=== PATIENT | female | born 1990 ===

== ENCOUNTER 2020-10-14 01:29 | Inpatient (IN) | payer MEDICAID ==
[2020-10-14] MEDS ORDERED: Methylergonovine 0.2 MG/1 ML Amp IM PRN (01:56)
[2020-10-14] MEDS ORDERED: Butorphanol 1 MG/ML SDV IVPUSH PRN (01:56)
[2020-10-14] MEDS ORDERED: Sodium Chloride 0.9% 2.5 ML Syringe FLUSH PRN (01:56)
[2020-10-14] MEDS ORDERED: Carboprost Tromethamine 250 MCG/1 ML Amp IM PRN (01:56)
[2020-10-14] MEDS ORDERED: Nalbuphine 10 MG/1 ML Vial IVPUSH PRN (01:56)
[2020-10-14] MEDS ORDERED: Lidocaine 1% 50 ML MDV INJECT PRN (01:56)
[2020-10-14] MEDS ORDERED: Water For Irrigation,Sterile 1,000 ML Container IRR PRN (01:56)
[2020-10-14] MEDS ORDERED: Sodium Chloride 0.9% 10 ML SDV IV PRN (01:56)
[2020-10-14] MEDS ORDERED: Misoprostol 200 MCG Tab PO PRN (01:56)
[2020-10-14] MEDS ORDERED: Tranexamic Acid 1,000 MG in Sodium Chloride 0.9% 100 ML IV PRN (01:56)
[2020-10-14] MEDS ORDERED: Sodium Chloride 0.9% 10 ML Syringe FLUSH PRN (01:56)
[2020-10-14] MEDS ORDERED: Oxytocin/0.9 % Sodium Chloride 30 UNIT/500 ML BAG IV SCH (02:00)
[2020-10-14] MEDS ORDERED: Lactated Ringers 1,000 ML IV SCH (02:00)
--- NOTE | 2020-10-14 02:28 | PCM.LDHP ---
L&D History of Present Illness - General Date of Service: 10/14/20 Admit Problem/Dx: Patient Status Order with Admit Dx/Problem 10/14/20 01:56 Patient Status [ADT] Routine Admission Diagnosis/Problem Admission Diagnosis/Problem Planned 10/14/20 02:21 Cesia is a 30 yo at 39+1 weeks gestation (DUSTIN(LMP) 10/20/2020) that presents today with C/O contractions every 1-2 minutes since 8:00 pm (~6 hours). Reports adequate movement. Denies C/O LOF, vaginal bleeding. A pos, Ab neg, RI, GBS neg. SVE by RN at bedside 6-7 cm, membranes intact. Cephalic 1 day ago in office via SVE. Patient denies any complaints or concerns at this time. Desires AROM. Source of Information: Patient History Limitations: Reports: No Limitations - History of Present Illness Improves with: Reports: Movement Worsens with: Reports: Immobilization Associated Symptoms: Reports: N - Related Data Allergies/Adverse Reactions: Allergies Allergy/AdvReac Type Severity Reaction Status Date / Time No Known Allergies Allergy Verified 10/14/20 01:54 Home Medications: Home Meds Pnv No.95/Ferrous Fum/Folic AC [ Vitamins Tablet] 1 tab PO DAILY 10/14/20 [History] Past Medical History - Past Health History Medical/Surgical History: Denies Medical/Surgical History HEENT History: Reports: None Cardiovascular History: Reports: None Respiratory History: Reports: None Gastrointestinal History: Reports: None Genitourinary History: Reports: None 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 Para: 3 LMP (Approximate): Musculoskeletal History: Reports: None Neurological History: Reports: None Psychiatric History: Reports: None Endocrine/Metabolic History: Reports: None Hematologic History: Reports: None Immunologic History: Reports: None Oncologic (Cancer) History: Reports: None Dermatologic History: Reports: None - Infectious Disease History Infectious Disease History: Reports: Chicken Pox - Past Surgical History Head Surgeries/Procedures: Reports: None HEENT Surgical History: Reports: None Cardiovascular Surgical History: Reports: None Respiratory Surgical History: Reports: None GI Surgical History: Reports: None Endocrine Surgical History: Reports: None Neurological Surgical History: Reports: None Musculoskeletal Surgical History: Reports: None Oncologic Surgical History: Reports: None Dermatological Surgical History: Reports: None Social & Family History - Family History OBGYN: Reports: - Tobacco Use Tobacco Use Status *Q: Never Tobacco User - Caffeine Use Caffeine Use: Reports: Tea - Alcohol Use Alcohol Use History: No - Recreational Drug Use Recreational Drug Use: No H&P Review of Systems - Review of Systems: Review Of Systems: Comprehensive ROS is negative, except as noted in HPI. General: Reports: No Symptoms HEENT: Reports: No Symptoms Pulmonary: Reports: No Symptoms Cardiovascular: Reports: No Symptoms Gastrointestinal: Reports: No Symptoms Genitourinary: Reports: No Symptoms Musculoskeletal: Reports: No Symptoms Skin: Reports: No Symptoms Psychiatric: Reports: No Symptoms Neurological: Reports: No Symptoms Hematologic/Lymphatic: Reports: No Symptoms Immunologic: Reports: No Symptoms L&D Exam - Exam Exam: See Below - Vital Signs Vital Signs: VSS, afebrile. See flowsheet. Weight: 180 lb - OB Specific Fundal Height In cm: 38 Contraction Duration (sec): 50-60 Contraction Frequency (min): 1.5-2 Contraction Intensity: Strong Movement: Active Heart Tones: Present Heart Tones per Min: 140 Heart Rate (FHR) Variability: Moderate (6-25 bmp) Presentation: Vertex (Via handheld TAUS and SVE) - Hcikman Score Hickman Score Cervix Position: Midposition Hickman Score Consistency: Soft Hickman Score Effacement: >80% Hickman Score Dilation: > 5 cm - Exam General: Alert, Oriented, Cooperative HEENT: Conjunctiva Clear, Hearing Intact, Mucosa Moist & [place], PERRLA Neck: Supple, Trachea Midline Lungs: Clear to Auscultation, Normal Respiratory Effort Cardiovascular: Regular Rate, Regular Rhythm GI/Abdominal Exam: Normal Bowel Sounds, Soft, Non-Tender, No Organomegaly, No Distention Rectal Exam: Normal Exam, Deferred Genitourinary: Normal external exam, Enlarged uterus (Gravid uterus) Back Exam: Normal Inspection, Full Range of Motion Extremities: Normal Inspection, Normal Range of Motion, Non-Tender, No Pedal Edema, Normal Capillary Refill Skin: Warm, Dry, Intact Neurological: Cranial Nerves Intact, Reflexes Equal Bilateral Psychiatric: Alert, Normal Affect, Normal Mood - Problem List (1) Uterine contractions SNOMED Code(s): 225491288 ICD Code: [id number] - Status: Acute Priority: High Current Visit: Yes (2) 39 weeks gestation of SNOMED Code(s): 78261018 ICD Code: Z3A.39 - 39 WEEKS GESTATION OF Status: Acute Priority: High Current Visit: Yes Problem List Initiated/Reviewed/Updated: Yes Orders Last 24hrs: Active Orders 24 hr Category Date Time Status Patient Status [ADT] Routine ADT 10/14/20 01:56 Active Heart Tones [RC] CONTINUOUS Care 10/14/20 01:56 Active Non Stress Test [RC] PER UNIT ROUTINE Care 10/14/20 01:56 Active May Shower [RC] ASDIRECTED Care 10/14/20 01:56 Active Notify Provider [RC] PRN Care 10/14/20 01:56 Active Up ad Vanessa [RC] ASDIRECTED Care 10/14/20 01:56 Active Vaginal Exam [RC] PRN Care 10/14/20 01:56 Active Vital Signs [RC] PER UNIT ROUTINE Care 10/14/20 01:56 Active CBC W/O DIFF,HEMOGRAM [HEME] Routine Lab 10/14/20 01:56 Ordered CORONAVIRUS COVID-19 BREONNA [MOLEC] Routine Lab 10/14/20 01:58 Ordered RPR (SYPHILIS SERO) W/ RFLX [REF] Routine Lab 10/14/20 01:56 Ordered TYPE AND SCREEN [BBK] Routine Lab 10/14/20 01:56 Ordered Butorphanol [Stadol] Med 10/14/20 01:56 Active 1 mg IVPUSH Q1H PRN Carboprost Tromethamine [Hemabate DS] Med 10/14/20 01:56 Active 250 mcg IM ASDIRECTED PRN Lactated Ringers [Ringers, Lactated] 1,000 ml Med 10/14/20 02:00 Active IV ASDIRECTED Lidocaine 1% [Xylocaine 1%] Med 10/14/20 01:56 Active 50 ml INJECT ONETIME PRN Methylergonovine [Methergine] Med 10/14/20 01:56 Active 0.2 mg IM ASDIRECTED PRN Nalbuphine [Nubain] Med 10/14/20 01:56 Active 10 mg IVPUSH Q1H PRN Oxytocin/0.9 % Sodium Chloride [Oxytocin 30 Unit/500 ML Med 10/14/20 02:00 Active -NS] 30 unit in 500 ml IV TITRATE Sodium Chloride 0.9% [Normal Saline] Med 10/14/20 01:56 Active 10 ml IV ASDIRECTED PRN Sodium Chloride 0.9% [Saline Flush] Med 10/14/20 01:56 Active 10 ml FLUSH ASDIRECTED PRN Sodium Chloride 0.9% [Saline Flush] Med 10/14/20 01:56 Active 2.5 ml FLUSH ASDIRECTED PRN Tranexamic Acid [Cyklokapron] 1,000 mg Med 10/14/20 01:56 Active Sodium Chloride 0.9% [Normal Saline] 100 ml IV ONETIME Water For Irrigation,Sterile [Sterile Water for Med 10/14/20 01:56 Active Irrigation] 1,000 ml IRR ASDIRECTED PRN miSOPROStoL [Cytotec] Med 10/14/20 01:56 Active 200 mcg PO ONETIME PRN Scalp Electrode [WOMSER] Per Unit Routine Oth 10/14/20 01:56 Ordered Peripheral IV Insertion Adult [OM.PC] Routine Oth 10/14/20 01:56 Ordered Resuscitation Status Routine Resus Stat 10/14/20 01:56 Ordered Medication Orders Butorphanol Tartrate (Stadol) 1 mg IVPUSH Q1H PRN PRN Reason: Pain Carboprost Tromethamine (Hemabate Ds) 250 mcg IM ASDIRECTED PRN PRN Reason: Post Hemorrhage Oxytocin/Sodium Chloride (Oxytocin 30 Unit/500 Ml-Ns) 30 unit in 500 mls @ 500 mls/hr IV TITRATE MYLES Tranexamic Acid 1,000 mg/ (Sodium Chloride) 110 mls @ 660 mls/hr IV ONETIME PRN PRN Reason: Bleeding Lactated Ringer's (Ringers, Lactated) 1,000 mls @ 150 mls/hr IV ASDIRECTED MYLES Lidocaine HCl (Xylocaine 1%) 50 ml INJECT ONETIME PRN PRN Reason: Laceration repair Methylergonovine Maleate (Methergine) 0.2 mg IM ASDIRECTED PRN PRN Reason: Post Hemorrhage Misoprostol (Cytotec) 200 mcg PO ONETIME PRN PRN Reason: Post Hemorrhage Nalbuphine HCl (Nubain) 10 mg IVPUSH Q1H PRN PRN Reason: Pain (severe 7-10) Sodium Chloride (Saline Flush) 10 ml FLUSH ASDIRECTED PRN PRN Reason: Keep Vein Open Sodium Chloride (Saline Flush) 2.5 ml FLUSH ASDIRECTED PRN PRN Reason: Keep Vein Open Sodium Chloride (Normal Saline) 10 ml IV ASDIRECTED PRN PRN Reason: IV Use Sterile Water (Sterile Water For Irrigation) 1,000 ml IRR ASDIRECTED PRN PRN Reason: delivery Assessment/Plan Comment:: Admit into observation for spontaneous active labor in anticipation of of viable, term . FHR Cat II, spontaneous contraction pattern. GBS neg. COVID pending. See new orders. Dr. Fitzpatrick notified and agreeable with POC.
[2020-10-14] MEDS ORDERED: Benzocaine/Menthol 20%-0.5% Spray 78 GM Cannister TOP PRN (03:46)
[2020-10-14] MEDS ORDERED: Acetaminophen 500 MG Tab PO PRN ×2 (03:46)
[2020-10-14] MEDS ORDERED: Lanolin 100% Cream 7 GM Tube TOP PRN (03:46)
[2020-10-14] MEDS ORDERED: Witch Hazel Medicated Pads 40/Jar TOP PRN (03:46)
[2020-10-14] MEDS ORDERED: Docusate Sodium 100 MG Cap PO PRN (03:46)
[2020-10-14] MEDS ORDERED: Ibuprofen 400 MG Tab PO PRN (03:46)
[2020-10-14] MEDS ORDERED: oxyCODONE 5 MG Tab PO PRN (03:46)
[2020-10-14] MEDS ORDERED: Bisacodyl 10 MG Supp RECTAL PRN (03:46)
--- NOTE | 2020-10-14 03:59 | PCM.DEL ---
L & D Note - General Info Date of Service: 10/14/20 Mother's Due Date: 10/20/20 - Delivery Note Labor: Spontaneous, Augmented by ARM Delivery Outcome: Livebirth Delivery Method: Spontaneous Vaginal Delivery-Single Delivery Mode: Spontaneous Presentation: Left Occiput Anterior (NAMRATA) Nuchal Cord: None Anesthesia Type: None Amniotic Fluid Description: Clear Episiotomy Type: None Laceration: None Placenta: Intact, Spontaneous Cord: 3 Vessels Estimated Blood Loss: 250 Resuscitation Needed: No : Stimulated, Warmed, [place] Used Score 1 min: 8 Score 5 min: 9 Second Stage Interventions: Reports: Encouragement Given, Pushing Effectively Delivery Comments (Free Text/Narrative):: Cesia is a 30 yo immediately S/P uncomplicated of viable, term NBF at 39+1 weeks gestation (DUSTIN(LMP) 10/20/20) following spontaneous onset of active labor. A pos, RI, GBS neg. Maternal void noted upon commencement of pushing. head delivered NAMRATA without issue, with body immediately following; strong spontaneous cries noted, warmed, dried, stimulated by RN. Umbilical cord was noted to be somewhat short (~12 inches), was held to maternal low abdomen. Umbilical cord left intact x 1-2 minutes, clamped x 2, cut by FOB. Meconium stool x1 ntoed at that time. re-directed skin to skin to maternal chest. Pitocin IV bolus commenced for active third stage management. Placenta delivered ~5 min S/P delivery, intact, [place], 3VC. Perineum intact except minute hemostatic skin tear to posterior vaginal introitus, not repaired. EBL ~250 ml. Apgars 8/9. NBF weight 7 lb oz (3180 g) - General Info Date of Service: 10/14/20 Admission Dx/Problem (Free Text): Patient Status Order with Admit Dx/Problem 10/14/20 01:56 Patient Status [ADT] Routine Admission Diagnosis/Problem Admission Diagnosis/Problem Planned 10/14/20 02:21 Cesia is a 30 yo at 39+1 weeks gestation (DUSTIN(LMP) 10/20/2020) that presents today with C/O contractions every 1-2 minutes since 8:00 pm (~6 hours). Reports adequate movement. Denies C/O LOF, vaginal bleeding. A pos, Ab neg, RI, GBS neg. SVE by RN at bedside 6-7 cm, membranes intact. Cephalic 1 day ago in office via SVE. Patient denies any complaints or concerns at this time. Desires AROM. Functional Status: Reports: Pain Controlled, Tolerating Diet, Ambulating, Urinating - Review of Systems General: Reports: No Symptoms HEENT: Reports: No Symptoms Pulmonary: Reports: No Symptoms Cardiovascular: Reports: No Symptoms Gastrointestinal: Reports: No Symptoms Genitourinary: Reports: No Symptoms Musculoskeletal: Reports: No Symptoms Skin: Reports: No Symptoms Neurological: Reports: No Symptoms Psychiatric: Reports: No Symptoms - Patient Data Vitals - Most Recent: VSS, aferile. See flowsheet. Weight - Most Recent: 180 lb Lab Results Last 24 Hours: Laboratory Results - last 24 hr 10/14/20 10/14/20 10/14/20 Range/Units 02:09 02:09 02:23 WBC 11.25 H (4.0-11.0) K/uL RBC 4.12 L (4.30-5.90) M/uL Hgb 10.9 L (12.0-16.0) g/dL Hct 33.3 L (36.0-46.0) % MCV 80.8 (80.0-98.0) fL MCH 26.5 L (27.0-32.0) pg MCHC 32.7 (31.0-37.0) g/dL RDW Std Deviation 40.6 (28.0-62.0) fl RDW Coeff of Charity 14 (11.0-15.0) % Plt Count 297 (150-400) K/uL MPV 10.70 (7.40-12.00) fL SARS-CoV-2 RNA (BREONNA) NEGATIVE (NEGATIVE) Blood Type A POSITIVE Antibody Screen NEGATIVE Med Orders - Current: Current Medications Acetaminophen (Tylenol Extra Strength) 500 mg PO Q4H PRN PRN Reason: Pain Acetaminophen (Tylenol Extra Strength) 1,000 mg PO Q4H PRN PRN Reason: Pain Benzocaine/Menthol (Dermoplast Pain Relief 20%-0.5% [place]) 78 gm TOP ASDIRECTED PRN PRN Reason: Perineal Comfort Measure Bisacodyl (Dulcolax) 10 mg RECTAL ONETIME PRN PRN Reason: Constipation Docusate Sodium (Colace) 100 mg PO BID PRN PRN Reason: Constipation Emollient Ointment (Lansinoh Hpa) 0 gm TOP ASDIRECTED PRN PRN Reason: Sore Nipples Ibuprofen (Motrin) 400 mg PO Q4H PRN PRN Reason: Pain Ibuprofen (Motrin) 800 mg PO Q6H PRN PRN Reason: Pain Oxycodone HCl (Oxycodone) 5 mg PO Q2H PRN PRN Reason: Pain Polysaccharide Iron Complex (Ferrex 150) 150 mg PO DAILY [facility] Vidhya Vela (Tucks) 1 pad TOP ASDIRECTED PRN PRN Reason: comfort care Discontinued Medications Butorphanol Tartrate (Stadol) 1 mg IVPUSH Q1H PRN PRN Reason: Pain Carboprost Tromethamine (Hemabate Ds) 250 mcg IM ASDIRECTED PRN PRN Reason: Post Hemorrhage Oxytocin/Sodium Chloride (Oxytocin 30 Unit/500 Ml-Ns) 30 unit in 500 mls @ 500 mls/hr IV TITRATE [facility] Tranexamic Acid 1,000 mg/ (Sodium Chloride) 110 mls @ 660 mls/hr IV ONETIME PRN PRN Reason: Bleeding Lactated Ringer's (Ringers, Lactated) 1,000 mls @ 150 mls/hr IV ASDIRECTED [facility] Last Admin: 10/14/20 02:09 Dose: 250 mls/hr Documented by: Lidocaine HCl (Xylocaine 1%) 50 ml INJECT ONETIME PRN PRN Reason: Laceration repair Methylergonovine Maleate (Methergine) 0.2 mg IM ASDIRECTED PRN PRN Reason: Post Hemorrhage Misoprostol (Cytotec) 200 mcg PO ONETIME PRN PRN Reason: Post Hemorrhage Nalbuphine HCl (Nubain) 10 mg IVPUSH Q1H PRN PRN Reason: Pain (severe 7-10) Sodium Chloride (Saline Flush) 10 ml FLUSH ASDIRECTED PRN PRN Reason: Keep Vein Open Sodium Chloride (Saline Flush) 2.5 ml FLUSH ASDIRECTED PRN PRN Reason: Keep Vein Open Sodium Chloride (Normal Saline) 10 ml IV ASDIRECTED PRN PRN Reason: IV Use Sterile Water (Sterile Water For Irrigation) 1,000 ml IRR ASDIRECTED PRN PRN Reason: delivery - Exam General: Alert, Oriented, Cooperative, No Acute Distress HEENT: Pupils Equal, Pupils Reactive, Mucous Membr. Moist/[place] Neck: Supple Lungs: Clear to Auscultation, Normal Respiratory Effort Cardiovascular: Regular Rate, Regular Rhythm GI/Abdominal Exam: Normal Bowel Sounds, Soft, Non-Tender, No Organomegaly, No Distention (Female) Exam: Normal External Exam, Enlarged Uterus ( uterus, firm @U), Vaginal Bleeding (Scant rubra lochia) Back Exam: Normal Inspection, Full Range of Motion Extremities: Normal Inspection, Normal Range of Motion, Non-Tender, No Pedal Edema, Normal Capillary Refill Skin: Warm, Dry, Intact Neurological: No New Focal Deficit Psy/Mental Status: Alert, Normal Affect, Normal Mood - Problem List & Annotations (1) (normal spontaneous vaginal delivery) SNOMED Code(s): 09655495, 504373755 Code(s): O80 - ENCOUNTER FOR FULL-TERM UNCOMPLICATED DELIVERY Status: Acute Priority: High Current Visit: Yes (2) Lactating mother SNOMED Code(s): 571060886, 703995631 Code(s): Z39.1 - ENCOUNTER FOR CARE AND EXAMINATION OF LACTATING MOTHER Status: Acute Priority: High Current Visit: Yes - Problem List Review Problem List Initiated/Reviewed/Updated: Yes - My Orders Last 24 Hours: My Active Orders 10/14/20 03:46 Patient Status [ADT] Routine May Shower [RC] ASDIRECTED Up ad Vanessa [RC] ASDIRECTED Vital Signs [RC] PER UNIT ROUTINE Acetaminophen [Tylenol Extra Strength] 1,000 mg PO Q4H PRN Acetaminophen [Tylenol Extra Strength] 500 mg PO Q4H PRN Benzocaine/Menthol [Dermoplast Pain Relief 20%-0.5% [place]] 78 gm TOP ASDIRECTED PRN Docusate Sodium [Colace] 100 mg PO BID PRN Ibuprofen [Motrin] 400 mg PO Q4H PRN Ibuprofen [Motrin] 800 mg PO Q6H PRN Lanolin [Lansinoh HPA] See Dose Instructions TOP ASDIRECTED PRN bisacodyL [Dulcolax] 10 mg RECTAL ONETIME PRN oxyCODONE 5 mg PO Q2H PRN witch Gal [Tucks] 1 pad TOP ASDIRECTED PRN Assess Lochia [WOMSER] Per Unit Routine Assess Uterine Involution [WOMSER] Per Unit Routine Peripheral IV Discontinue [OM.PC] Routine Resuscitation Status Routine 10/14/20 03:47 Cooling Warming Measures [RC] ASDIRECTED Ice Therapy [OM.PC] Per Unit Routine Perineal Care [OM.PC] Per Unit Routine Sitz Bath [OM.PC] Per Unit Routine 10/14/20 Breakfast Regular Diet [DIET] 10/14/20 09:00 Iron Polysaccharides Complex [Ferrex 150] 150 mg PO DAILY - Plan Plan:: Admit into inpatient for course of care following uncomplicated of viable, term . Hemodynamically stable, afebrile. May ambulate with assistance when desired. If patient has not emptied bladder within 6 hours, notify provider. See new orders. Dr. Fitzpatrick notified and agreeable with POC.
[2020-10-14] MEDS: Ibuprofen 800 MG Tab PO PRN ×2 (05:21→13:58)
[2020-10-14] MEDS: Iron Polysaccharides Complex 150 MG Cap PO SCH (09:13)
[2020-10-15] MEDS: Iron Polysaccharides Complex 150 MG Cap PO SCH (08:46)
[2020-10-15] MEDS: Ibuprofen 800 MG Tab PO PRN (08:46)
--- NOTE | 2020-10-15 10:34 | PCM.DCSUM1 ---
Discharge Summary - Hospital Course Free Text/Narrative:: Cesia is a 30 yo G4 now P4 S/P uncomplicated of viable, term NBF at 39+1 weeks gestation (DUSTIN(LMP) 10/20/20) following spontaneous onset of active labor. A pos, RI, GBS neg. Delivery and care uncomplicated EBL ~250 ml. Apgars 8/9. NBF weight 7 lb oz (3180 g) Diagnosis: Stroke: No - Discharge Data Discharge Date: 10/15/20 Discharge Disposition: Home, Self-Care 01 Condition: Good - Referral to Home Health Primary Care Physician: Cynthia Cook NP - Discharge Plan *PRESCRIPTION DRUG MONITORING PROGRAM REVIEWED*: Not Applicable *COPY OF PRESCRIPTION DRUG MONITORING REPORT IN PATIENT LOU: Not Applicable Home Medications: Home Meds Pnv No.95/Ferrous Fum/Folic AC [ Vitamins Tablet] 1 tab PO DAILY 10/14/20 [History] - Discharge Summary/Plan Comment DC Time >30 min.: Yes Discharge Summary/Plan Comment: Discharge home with . Follow-up at appointment, earlier PRN - General Info Date of Service: 10/15/20 Admission Dx/Problem (Free Text: Patient Status Order with Admit Dx/Problem 10/14/20 01:56 Patient Status [ADT] Routine Admission Diagnosis/Problem Admission Diagnosis/Problem Planned 10/14/20 02:21 Cesia is a 30 yo at 39+1 weeks gestation (DUSTIN(LMP) 10/20/2020) that presents today with C/O contractions every 1-2 minutes since 8:00 pm (~6 hours). Reports adequate movement. Denies C/O LOF, vaginal bleeding. A pos, Ab neg, RI, GBS neg. SVE by RN at bedside 6-7 cm, membranes intact. Cephalic 1 day ago in office via SVE. Patient denies any complaints or concerns at this time. Desires AROM. Subjective Update: course unremarkable. Pain well-controlled Minimal bleeding. Voiding without issues. No complaints. Would like to be discharge today. Functional Status: Reports: Pain Controlled - Review of Systems General: Reports: No Symptoms HEENT: Reports: No Symptoms Pulmonary: Reports: No Symptoms Cardiovascular: Reports: No Symptoms Gastrointestinal: Reports: No Symptoms Genitourinary: Reports: No Symptoms Musculoskeletal: Reports: No Symptoms Skin: Reports: No Symptoms Neurological: Reports: No Symptoms Psychiatric: Reports: No Symptoms - Patient Data Vitals - Most Recent: Last Vital Signs Temp 97.5 F 10/15/20 08:56 Pulse 68 10/15/20 08:56 Resp 16 10/15/20 08:56 BP 130/68 10/15/20 08:56 Pulse Ox 97 10/15/20 08:56 Weight - Most Recent: 81.647 kg Med Orders - Current: Current Medications Acetaminophen (Tylenol Extra Strength) 500 mg PO Q4H PRN PRN Reason: Pain Acetaminophen (Tylenol Extra Strength) 1,000 mg PO Q4H PRN PRN Reason: Pain Last Admin: 10/14/20 23:39 Dose: 1,000 mg Documented by: Benzocaine/Menthol (Dermoplast Pain Relief 20%-0.5% [place]) 78 gm TOP ASDIRECTED PRN PRN Reason: Perineal Comfort Measure Last Admin: 10/14/20 05:20 Dose: 1 canister Documented by: Bisacodyl (Dulcolax) 10 mg RECTAL ONETIME PRN PRN Reason: Constipation Docusate Sodium (Colace) 100 mg PO BID PRN PRN Reason: Constipation Emollient Ointment (Lansinoh Hpa) 0 gm TOP ASDIRECTED PRN PRN Reason: Sore Nipples Ibuprofen (Motrin) 400 mg PO Q4H PRN PRN Reason: Pain Ibuprofen (Motrin) 800 mg PO Q6H PRN PRN Reason: Pain Last Admin: 10/15/20 08:46 Dose: 800 mg Documented by: Oxycodone HCl (Oxycodone) 5 mg PO Q2H PRN PRN Reason: Pain Polysaccharide Iron Complex (Ferrex 150) 150 mg PO DAILY [facility] Last Admin: 10/15/20 08:46 Dose: 150 mg Documented by: Vidhya Escobar) 1 pad TOP ASDIRECTED PRN PRN Reason: comfort care Discontinued Medications Butorphanol Tartrate (Stadol) 1 mg IVPUSH Q1H PRN PRN Reason: Pain Carboprost Tromethamine (Hemabate Ds) 250 mcg IM ASDIRECTED PRN PRN Reason: Post Hemorrhage Oxytocin/Sodium Chloride (Oxytocin 30 Unit/500 Ml-Ns) 30 unit in 500 mls @ 500 mls/hr IV TITRATE [facility] Last Infusion: 10/14/20 03:55 Dose: 250 mls/hr Documented by: Tranexamic Acid 1,000 mg/ (Sodium Chloride) 110 mls @ 660 mls/hr IV ONETIME PRN PRN Reason: Bleeding Lactated Ringer's (Ringers, Lactated) 1,000 mls @ 150 mls/hr IV ASDIRECTED [facility] Last Admin: 10/14/20 02:09 Dose: 250 mls/hr Documented by: Lidocaine HCl (Xylocaine 1%) 50 ml INJECT ONETIME PRN PRN Reason: Laceration repair Methylergonovine Maleate (Methergine) 0.2 mg IM ASDIRECTED PRN PRN Reason: Post Hemorrhage Misoprostol (Cytotec) 200 mcg PO ONETIME PRN PRN Reason: Post Hemorrhage Nalbuphine HCl (Nubain) 10 mg IVPUSH Q1H PRN PRN Reason: Pain (severe 7-10) Sodium Chloride (Saline Flush) 10 ml FLUSH ASDIRECTED PRN PRN Reason: Keep Vein Open Sodium Chloride (Saline Flush) 2.5 ml FLUSH ASDIRECTED PRN PRN Reason: Keep Vein Open Sodium Chloride (Normal Saline) 10 ml IV ASDIRECTED PRN PRN Reason: IV Use Sterile Water (Sterile Water For Irrigation) 1,000 ml IRR ASDIRECTED PRN PRN Reason: delivery - Exam General: Reports: Alert, Oriented Neck: Reports: Supple Lungs: Reports: Normal Respiratory Effort Cardiovascular: Reports: Regular Rate GI/Abdominal Exam: Soft, Non-Tender Extremities: Normal Inspection Psy/Mental Status: Reports: Alert, Normal Affect, Normal Mood
== END 2020-10-15 11:48 | disposition home or self-care (01) | DRG 807 ==
LOC: MW.OBCHECK 01:29 → MW.OB 01:30 → MW.OBCHECK 01:56 → OBSVTOIN 03:33 → MW.OB 05:59
PROVIDERS: ADMIT Obstetrics & Gynecology; ATTEND Obstetrics & Gynecology
PROC: 10E0XZZ Delivery of Products of Conception, External Approach (ICD-10-PCS; principal; 2020-10-14)
PROC: 10907ZC Drainage of Amniotic Fluid, Therapeutic from Products of Conception, Via Natural or Artificial Opening (ICD-10-PCS; 2020-10-14)
DX: O77.0 Labor and delivery complicated by meconium in amniotic fluid (principal); Z37.0 Single live birth; Z3A.39 39 weeks gestation of pregnancy; O99.824 Streptococcus B carrier state complicating childbirth; Z20.822 Contact with and (suspected) exposure to COVID-19
CPT/HCPCS: 36415; 59025; 59409; 85027; 86592; 86850; 86900; 86901; A9270-GY; J2590; J7120; U0002